=== PATIENT | female | born 1985 | race African-American/Black ===

== ENCOUNTER 2016-11-26 01:41 | Emergency (ER) | payer SELFPAY ==
[2016-11-26 01:59] VITALS: BMI 43.0
--- NOTE | 2016-11-26 03:13 | PDOC ---
History of Present Illness - General History Source: Patient Exam Limitations: No Limitations - History of Present Illness Initial Comments: The patient is a 31 yo F with no PMHx who presents due to worsening abdominal hernia. The patient was diagnosed after her caesarian in 2014. The patient states that the the pain has been getting worse since this morning. She denies nausea, vomiting, diarrhea. She denies fevers and chills. The patient states she was unable to get her hernia treated in 2015 because she didnt have anyone to take care of her son. The patient states she does not follow up with a PCP. <Violeta Niño - Last Filed: 11/26/16 05:12> <Aminata Hernandez - Last Filed: 11/26/16 06:53> - General Chief Complaint: Pain Stated Complaint: ABDOMINAL PAIN Time Seen by Provider: 11/26/16 02:40 Past History <Violeta Niño - Last Filed: 11/26/16 05:12> - Past Medical History Asthma: No Cancer: No Cardiac Disorders: No Diabetes: No HTN: No Seizures: No Thyroid Disease: No - Psycho/Social/Smoking Cessation Hx Suicidal Ideation: No Smoking History: Never smoked Have you smoked in the past 12 months: No Information on smoking cessation initiated: No Hx Alcohol Use: No Drug/Substance Use Hx: No Substance Use Type: None Hx Substance Use Treatment: No <Aminata Hernandez - Last Filed: 11/26/16 06:53> - Past Medical History Allergies/Adverse Reactions: Allergies Allergy/AdvReac Type Severity Reaction Status Date / Time No Known Allergies Allergy Verified 11/26/16 01:54 Home Medications: Ambulatory Orders NK [No Known Home Medication] 11/26/16 Review of Systems - Review of Systems Able to Perform ROS?: Yes Comments:: GENERAL/CONSTITUTIONAL: No fever or chills. No weakness. HEAD, EYES, EARS, NOSE AND THROAT: No change in vision. No ear pain or discharge. No sore throat. CARDIOVASCULAR: No chest pain or shortness of breath. RESPIRATORY: No cough, wheezing, or hemoptysis. GASTROINTESTINAL: +abdominal pain No nausea, vomiting, diarrhea or constipation. GENITOURINARY: No dysuria, frequency, or change in urination. MUSCULOSKELETAL: No joint or muscle swelling or pain. No neck or back pain. SKIN: No rash NEUROLOGIC: No headache, vertigo, loss of consciousness, or change in strength/ sensation. ENDOCRINE: No increased thirst. No abnormal weight change. HEMATOLOGIC/LYMPHATIC: No anemia, easy bleeding, or history of blood clots. ALLERGIC/IMMUNOLOGIC: No hives or skin allergy. <Violeta Niño - Last Filed: 11/26/16 05:12> *Physical Exam - Vital Signs Last Vital Signs Temp Pulse Resp BP Pulse Ox 98.2 F 62 20 132/88 100 11/26/16 01:54 11/26/16 01:54 11/26/16 01:54 11/26/16 01:54 11/26/16 01:54 - Physical Exam Comments: GENERAL: Awake, alert, and fully oriented, in no acute distress HEAD: No signs of trauma EYES: PERRLA, EOMI, sclera anicteric, conjunctiva clear ENT: Auricles normal inspection, hearing grossly normal, nares patent, oropharynx clear without exudates. Moist mucosa NECK: Normal ROM, supple, no lymphadenopathy, JVD, or masses LUNGS: Breath sounds equal, clear to auscultation bilaterally. No wheezes, and no crackles HEART: Regular rate and rhythm, normal S1 and S2, no murmurs, rubs or gallops ABDOMEN: Soft, nontender, normoactive bowel sounds. No guarding, no rebound. reducible ventral hernia. EXTREMITIES: Normal range of motion, no edema. No clubbing or cyanosis. No cords, erythema, or tenderness NEUROLOGICAL: Cranial nerves II through XII grossly intact. Normal speech, normal gait SKIN: Warm, Dry, normal turgor, no rashes or lesions noted. <Violeta Niño - Last Filed: 11/26/16 05:12> - Vital Signs Last Vital Signs Temp Pulse Resp BP Pulse Ox 98.2 F 62 20 132/88 100 11/26/16 01:54 11/26/16 01:54 11/26/16 01:54 11/26/16 01:54 11/26/16 01:54 <Aminata Hernandez - Last Filed: 11/26/16 06:53> ED Treatment Course - LABORATORY CBC & Chemistry Diagram: 11/26/16 04:12 11/26/16 04:12 - ADDITIONAL ORDERS Additional order review: Laboratory Results 11/26/16 11/26/16 04:12 04:12 Sodium 140 Potassium 3.5 Chloride 107 Carbon Dioxide 28 Anion Gap 5 L BUN 16 D Creatinine 0.7 D Creat Clearance w eGFR > 60 Random Glucose 96 Calcium 8.5 Total Bilirubin 0.3 AST 23 ALT 24 Alkaline Phosphatase 61 Total Protein 6.8 Albumin 3.5 Serum , Qual Negative 11/26/16 04:12 RBC 4.04 MCV 84.7 MCHC 32.8 RDW 13.3 MPV 7.1 L Neutrophils % 41.3 L D Lymphocytes % 48.1 H D Monocytes % 7.2 Eosinophils % 3.2 Basophils % 0.2 <Violeta Niño - Last Filed: 11/26/16 05:12> - LABORATORY CBC & Chemistry Diagram: 11/26/16 04:12 11/26/16 04:12 <Aminata Hernandez - Last Filed: 11/26/16 06:53> Medical Decision Making - Medical Decision Making 11/26/16 04:12 Pt comes with ventral hernia; supraumbilical medial rectus muscle diastasis. Pt states it originally began after her 2 years ago. Now getting worse ; likely because she is lifting her child who is heavy. 11/26/16 06:52 Pt's labs are normal. She has a ventral hernia that pops out, but is reducible when she lies down. Pt states that she has abd pain. But no nausea and no vomiting. She's afebrile. Result of Ct scan abd/pelvis is pending. Pt will be signed out to the day team. <Aminata Hernandez - Last Filed: 11/26/16 06:53> *DC/Admit/Observation/Transfer - Attestations Scribe Attestion: Documentation prepared by Violeta Nñio, acting as medical staff assistant for Aminata Hernandez MD/DO. <Violeta Niño - Last Filed: 11/26/16 05:12>
[2016-11-26 04:21] LABS: BASOPHIL 0.2 % (0-2.0); EOSINOPHIL 3.2 % (0-4.5); MCH 27.8 pg (25.7-33.7); MCHC 32.8 g/dl (32.0-36.0); MEAN CELL VOLUME 84.7 fl (80-96); MEAN PLT VOLUME 7.1 fl (7.5-11.1); NEUTROPHILS 41.3 % (42.8-82.8); PLATELET COUNT 239 K/MM3 (134-434); RDW 13.3 % (11.6-15.6); WHITE BLOOD COUNT 4.7 K/mm3 (4.0-10.0)
[2016-11-26 05:10] LABS: ALBUMIN 3.5 g/dl (3.4-5.0); ALK PHOS 61 U/L (45-117); ANION GAP 5 (8-16); BILIRUBIN,TOTAL 0.3 mg/dL (0.2-1.0); CALCIUM 8.5 mg/dL (8.5-10.1); CO2 28 mmol/L (21-32); CREATININE 0.7 mg/dL (0.55-1.02); GLUCOSE,RANDOM 96 mg/dL (74-106); SGOT/AST 23 U/L (15-37); SGPT/ALT 24 U/L (12-78); TOT PROT 6.8 g/dl (6.4-8.2)
[2016-11-26 07:21] VITALS: PULSE 60
--- NOTE | 2016-11-26 08:30 | PDOC ---
*Physical Exam - Vital Signs Sign-out taken at 0700. 31 yo female with h/o diastasis since last p/ w abdominal pain to diastatic area. Reducible, not discolored, still passing gas and having bowel movements per her report. Abdominal CT done and report is pending. Last Vital Signs Temp Pulse Resp BP Pulse Ox 98.1 F 60 18 130/76 98 11/26/16 07:20 11/26/16 07:20 11/26/16 07:20 11/26/16 07:20 11/26/16 07:20 - Physical Exam General Appearance: Yes: Nourished, Appropriately Dressed, Obese, Other ( pleasant and conversive adult female). No: Apparent Distress Respiratory/Chest: positive: Lungs Clear, Normal Breath Sounds. negative: Chest Tender, Respiratory Distress, Accessory Muscle Use Cardiovascular: positive: Regular Rhythm, Regular Rate. negative: Murmur Gastrointestinal/Abdominal: positive: Normal Bowel Sounds, Protuberent, Other ( small umbilical hernia appreciated while patient is laying flat on her back which is easily reducible, minimally tender). negative: Guarding, Rebound Neurologic: positive: Fully Oriented, Alert, Normal Mood/Affect ED Treatment Course - LABORATORY CBC & Chemistry Diagram: 11/26/16 04:12 11/26/16 04:12 - ADDITIONAL ORDERS Additional order review: Laboratory Results 11/26/16 11/26/16 04:12 04:12 Sodium 140 Potassium 3.5 Chloride 107 Carbon Dioxide 28 Anion Gap 5 L BUN 16 D Creatinine 0.7 D Creat Clearance w eGFR > 60 Random Glucose 96 Calcium 8.5 Total Bilirubin 0.3 AST 23 ALT 24 Alkaline Phosphatase 61 Total Protein 6.8 Albumin 3.5 Serum , Qual Negative 11/26/16 04:12 RBC 4.04 MCV 84.7 MCHC 32.8 RDW 13.3 MPV 7.1 L Neutrophils % 41.3 L D Lymphocytes % 48.1 H D Monocytes % 7.2 Eosinophils % 3.2 Basophils % 0.2 - RADIOLOGY Radiology Studies Ordered: EXAM#: TYPE/EXAM: RESULT: [id number] CT/ABDOMEN PELVIS CT W/O CONTR Rule out incarcerated ventral hernia CT scan of the abdomen pelvis following oral contrast administration only Coronal and sagittal reformatted images were obtained Included lower lung appears unremarkable and the heart is within normal limits in size. Evaluation of the liver, spleen, pancreas, gallbladder, both adrenal glands and both kidneys appear unremarkable. Nondistended stomach limiting evaluation of its wall. There is no evidence of small bowel obstruction. Normal-appearing terminal ileum and appendix. No free air or free fluid in the abdomen pelvis. No enlarged lymph nodes identified. Normal stool burden in the colon without wall thickening. Normal size uterus. Moderately distended urinary bladder without wall thickening. There is a small supraumbilical ventral fat- containing hernia measuring 5 x 2.5 cm in transverse and AP dimension. The abdominal defect measures 2 cm. There is stranding within the hernia fat. There is a low-attenuation of fatty density in the left hemipelvis measuring approximately 3.6 cm suggestive of a left ovarian the rheumatoid. Visualized osseous structures appear intact IMPRESSION: Small supraumbilical, ventral fat-containing hernia with stranding. Cannot rule out incarceration. Hernia opening defect measures 2 cm in width. 3.6 cm low-attenuation masslike density in the left hemipelvis suggestive of a left ovarian/ adnexal the ethmoid. A preliminary [facility], [facility] [employer] Reported By: Heather Fonseca MD 11/26/16 [id number] Medical Decision Making - Medical Decision Making 31 yo female with h/o diastasis after , p/w abdominal pain at site of ventral hernia. Awaiting CT abdomen/pelvis at sign-out at 0700. CT abdomen/pelvis report without incarcerated bowel, otherwise nothing acute. Pt reports pain is tolerable without medication now, wishes to go home. Repeat exam with minimal tenderness, reducible ventral hernia, no skin changes. Pt is appropriate for OP management and is discharged home. *DC/Admit/Observation/Transfer Diagnosis at time of Disposition: Umbilical hernia Qualifiers: Obstruction and gangrene presence: without obstruction or gangrene Qualified Code(s): K42.9 - Umbilical hernia without obstruction or gangrene - Discharge Dispostion Disposition: HOME Condition at time of disposition: Stable Admit: No - Patient Instructions Printed Discharge Instructions: DI for Ventral Hernia Additional Instructions: You were seen today for an abdominal hernia. You had some pain to the area when you came in, but this resolved with time. We did an abdominal/pelvic CT scan to check and see if any bowel or other important structures were trapped. There did not seem to be any important structures trapped in the hernia, and the CT scan was otherwise not concerning. We feel comfortable sending you home with close PCP follow up early next week. Please take Tylenol or Motrin as needed, and follow up with your regular doctor or return to the emergency room with any new or worsened symptoms (inability to have a bowel movement, inability to pass gas, fever, severe pain that does not resolve with OTC pain medications, or other symptoms. - Attestations Physician Attestion: 11/26/16 09:56 I, Dr. Clarissa Motley, attest that this document has been prepared under my direction and personally reviewed by me in its entirety. I further attest, that it accurately reflects all work, treatment, procedures and medical decision -making performed by me.
[2016-11-26 09:52] VITALS: BP 119/71; TEMP 98.2
== END 2016-11-26 09:53 | disposition home or self-care (01) ==
LOC: JER 01:41
DX: K42.9 Umbilical hernia without obstruction or gangrene (principal)
CPT/HCPCS: 36415; 74176-TC; 80053; 84703; 85025; 99283-25

== ENCOUNTER 2023-02-18 16:47 | Emergency (ER) | payer BC ==
[2023-02-18 16:54] VITALS: BP 129/78; PULSE 74; RESP 20; TEMP 98.8; BMI 40.2
[2023-02-18] MEDS ORDERED: MECLIZINE HCL 25 MG TABLET (FP) PO ONE (18:42)
[2023-02-18] MEDS ORDERED: MECLIZINE HCL 25 MG TABLET (FP) ONE (18:46)
== END 2023-02-18 19:21 | disposition home or self-care (01) ==
LOC: JER 16:47
DX: R42 Dizziness and giddiness (principal); R11.0 Nausea
CPT/HCPCS: 93005; 93010; 99283-25